=== PATIENT | male | born 1990 | race Caucasian/White ===

== ENCOUNTER 2017-07-29 19:15 | Inpatient (IN) | payer MEDICAID ==
[~2017-07-29] VITALS: Ht 154.9 cm; Wt 61.2 kg
[2017-07-29 19:52] VITALS: BP 131/63
--- NOTE | 2017-07-29 20:46 | NUR ---
Pt ambulated to bed 4.
--- NOTE | 2017-07-29 20:55 | NUR ---
Patient being evaluated by Dr. Malik at bedside.
--- NOTE | 2017-07-29 21:00 | NUR ---
26/M c/o left flank pain x2 days. Pt also c/o N/V/D. No vomiting or diarrhea noted while pt in ED. Pt c/o sharp, non radiating, 7/10 left flank pain. Skin warm and dry, normal in color for ethnicity. Abdomen soft, non tender, active bowel sounds x4 quadrants. Denies any painful urination. AOX4, faroese speaking, clear speech. VSS. Pt assisted into a gown, placed on director of cardiac rehabilitation, pulse oximetry and blood pressure monitoring. Placed in position of comfort. All needs addressed.
[2017-07-29 21:08] LABS: BASOPHILS # (AUTO) 0.4 K/uL (0.00-0.22); EOSINOPHILS # (AUTO) 0.2 K/uL (0-0.4); HEMATOCRIT 44.3 % (36-52); HEMOGLOBIN 14.5 g/dL (12.0-18.0); LYMPHOCYTES # (AUTO) 0.7 K/uL (2.0-11.5); MEAN CORPUSCULAR HEMOGLOBIN 29 pg (27-31); MEAN CORPUSCULAR HGB CONC 33 g/dL (33-37); MEAN CORPUSCULAR VOLUME 89 fL (80-94); MONOCYTES # (AUTO) 1.1 K/uL (0.8-1.0); NEUTROPHILS # (AUTO) 8.4 K/uL (1.8-7.7); PLATELET COUNT (AUTO) 230 K/uL (140-450); RED CELL DISTRIBUTION WIDTH 12.6 % (11.6-13.7); WHITE BLOOD COUNT (AUTO) 10.8 K/uL (4.8-10.8)
--- NOTE | 2017-07-29 21:09 | NUR ---
Pain medication offered to patient. Pt states "I am okay right now."
[2017-07-29 21:18] LABS: ANION GAP 16.6 (8-16); CARBON DIOXIDE 23.8 mmol/L (21-32); CREATININE 1.5 mg/dL (0.7-1.3); POTASSIUM 3.4 mmol/L (3.5-5.1)
[2017-07-29 21:23] LABS: ALBUMIN 4.4 g/dL (3.4-5.0); TOTAL BILIRUBIN 0.8 mg/dL (0.0-1.0)
[2017-07-29 21:43] LABS: BILIRUBIN,URINE NEGATIVE (NEGATIVE); BLOOD, URINE TRACE-I (NEGATIVE); LEUKOCYTE ESTERASE ,URINE NEGATIVE (NEGATIVE); NITRITE, URINE NEGATIVE (NEGATIVE); UGLUCOSE NEGATIVE (NEGATIVE)
[2017-07-29 21:46] LABS: APPEARANCE,URINE CLEAR (CLEAR); COLOR,URINE YELLOW (YELLOW)
--- NOTE | 2017-07-29 21:49 | NUR ---
Patient resting comfortably in bed. VSS. Mother and girlfriend at bedside. No distress noted.
[2017-07-29] MEDS ORDERED: LEVOFLOXACIN 500 MG/D5W PREMIX 100 ML IV ONE (21:50)
[2017-07-29 21:56] LABS: RBC,URINE 3-10 (FEW) /HPF (0-5); WBC,URINE 0-5 (RARE) /HPF (0-5)
[2017-07-29] MEDS ORDERED: MORPHINE SULFATE 2 MG/ML SYR IVP PRN (22:05)
[2017-07-29] MEDS ORDERED: HYDROcodone/APAP 7.5/325 MG 1 TAB PO PRN (22:05)
[2017-07-29] MEDS ORDERED: ACETAMINOPHEN 325 MG TAB PO PRN (22:05)
[2017-07-29] MEDS ORDERED: DOCUSATE SODIUM 100 MG GELCAP PO PRN (22:05)
[2017-07-29] MEDS ORDERED: ONDANSETRON 4 MG/2 ML VIAL IM/IVP PRN (22:05)
[2017-07-29] MEDS ORDERED: KCL 20 MEQ/WATER INJ PREMIX 100 ML IV ONE (22:15)
--- NOTE | 2017-07-29 22:31 | NUR ---
Patient will be admitted to care of Dr. Pan. Admited to TELE. Will go to room 111-B. Belongings list completed. Report to Tiffanie RENE.
--- NOTE | 2017-07-29 22:37 | NUR ---
Pt transferred to Tele 111-B via [facility] accompanied by EMT Areli and Lety RENE.
[2017-07-29 22:45] VITALS: BP 105/63
[2017-07-29 22:47] LABS: BARBITURATE, URINE NEG. ng/ml (NEG <=200); BENZODIAZEPINE, URINE NEG. ng/mL (NEG <=200); CANNABINOID, URINE NEG. ng/mL (NEG <=50); COCAINE, URINE NEG. ng/mL (NEG <=300); OPIATE, URINE NEG. ng/mL (NEG <=2000); PHENCYCLIDINE SCREEN,URINE NEG. ng/mL (NEG <=25)
--- NOTE | 2017-07-29 22:55 | NUR ---
ADMITTED PATIENT TO THE TELE UNIT, PATIENT AWAKE ALERT ORIENTED X4, NO S/S OF ACUTE DISTRESS NOTED, RESPIRATION EVEN AND UNLABORED, IV INTACT AND PATENT, INFUSING LEVOFLOXACIN 500MG IVPB AT 100ML/HR. TELE MONITOR PLACED ON PATIENT, PLAN OF CARE DISCUSSED, PATIENT VERBALIZED UNDERSTANDING, ORIENTED PATIENT TO THE ROOM, CALL LIGHT WITHIN REACH, SAFETY MEASURE ENSURED, WILL CONTINUE TO MONITOR.
[2017-07-29 22:56] LABS: MAGNESIUM 1.8 mg/dL (1.8-2.4); PHOSPHORUS 3.5 mg/dL (2.5-4.9); THYROID STIMULATING HORMONE 1.01 uIU/mL (0.34-3.74)
[2017-07-29] MEDS: NACL 0.9% 1,000 ML IV SCH (23:11)
--- NOTE | 2017-07-30 00:11 | NUR ---
SCD APPLIED ON BOTH LOWER EXTREMITIES. PATIENT RESTING IN BED, NO S/S OF ACUTE DISTRESS NOTED, WILL CONTINUE TO MONITOR.
--- NOTE | 2017-07-30 01:55 | NUR ---
PATIENT SLEEPING IN THE BED, NO S/S OF ACUTE DISTRESS NOTED, RESPIRATION EVEN AND UNLABORED, CALL LIGHT WITHIN REACH, SAFETY MEASURE ENSURED, WILL CONTINUE TO MONITOR.
[2017-07-30 04:00] VITALS: BP 109/65
--- NOTE | 2017-07-30 04:09 | NUR ---
PATIENT SLEEPING IN THE BED, NO S/S OF ACUTE DISTRESS NOTED, RESPIRATION EVEN AND UNLABORED, CALL LIGHT WITHIN REACH, SAFETY MEASURE ENSURED, WILL CONTINUE TO MONITOR.
[2017-07-30 05:45] LABS: BASOPHILS # (AUTO) 0.1 K/uL (0.00-0.22); BASOPHILS % (AUTO) 1.5 % (0.0-2.0); EOSINOPHILS # (AUTO) 0.2 K/uL (0-0.4); EOSINOPHILS % (AUTO) 2.3 % (0.0-4.0); HEMATOCRIT 39.9 % (36-52); HEMOGLOBIN 13.5 g/dL (12.0-18.0); LYMPHOCYTES # (AUTO) 1.7 K/uL (2.0-11.5); LYMPHOCYTES % (AUTO) 20.7 % (20.5-51.1); MEAN CORPUSCULAR HEMOGLOBIN 30 pg (27-31); MEAN CORPUSCULAR HGB CONC 34 g/dL (33-37); MEAN CORPUSCULAR VOLUME 89 fL (80-94); MONOCYTES # (AUTO) 0.8 K/uL (0.8-1.0); MONOCYTES % (AUTO) 9.5 % (1.7-9.3); NEUTROPHILS # (AUTO) 5.6 K/uL (1.8-7.7); PLATELET COUNT (AUTO) 200 K/uL (140-450); RED BLOOD CELL COUNT(AUTO) 4.47 MIL/uL (4.20-6.10); RED CELL DISTRIBUTION WIDTH 12.5 % (11.6-13.7); WHITE BLOOD COUNT (AUTO) 8.4 K/uL (4.8-10.8)
--- NOTE | 2017-07-30 05:46 | NUR ---
STRAIN 200ML URINE, NO STONE WAS FOUND.
[2017-07-30 06:07] LABS: ANION GAP 12.3 (8-16); CARBON DIOXIDE 25.6 mmol/L (21-32); CREATININE 1.3 mg/dL (0.7-1.3); POTASSIUM 3.9 mmol/L (3.5-5.1)
--- NOTE | 2017-07-30 07:12 | NUR ---
ENDORSED PLAN OF CARE TO DAY RN ANDREINA, PATIENT IS IN STABLE CONDITION. NO S/S OF ACUTE DISTRESS NOTED, RESPIRATION EVEN AND UNLABORED.
--- NOTE | 2017-07-30 07:15 | NUR ---
RECEIVED PATIENT REPORT AT BEDSIDE FROM NIGHT NURSE. PATIENT IS AAOX4 AND SHOWS NO S/S OF ACUTE DISTRESS ON ROOM AIR. PATIENT HAS NOTED IVF'S INFUSING WELL ON THE L FA. SKIN IS INTACT. PATIENT DENIES PAIN. PATIENT WAS EDUCATED ON HIS POC FOR TODAY AND VERBALIZED UNDERSTANDING. PATIENT IS AWARE OF HOW TO CALL FOR ASSISTANCE USING THE CALL LIGHT. THE BED IS LOWERED WITH CALL LIGHT WITHIN REACH. WILL CONTINUE TO MONITOR.
[2017-07-30] MEDS: TAMSULOSIN 0.4 MG CAP PO SCH (08:34)
--- NOTE | 2017-07-30 08:34 | NUR ---
ADMINISTERED SCHEDULED MEDICATIONS. PATIENT TOLERATED ACTIVITY WELL. PATIENT SHOWS NO S/S OF ACUTE DISTRESS.
[2017-07-30] MEDS: NACL 0.9% 1,000 ML IV SCH ×3 (08:42→23:02)
[2017-07-30 09:16] VITALS: BP 101/61
--- NOTE | 2017-07-30 10:25 | NUR ---
PATIENT SHOWS NO S/S OF ACUTE DISTRESS ON ROOM AIR. PATIENT DENIES PAIN. WILL CONTINUE TO MONITOR.
--- NOTE | 2017-07-30 11:22 | NUR ---
PATIENT HAS BEEN SCREENED AND CATEGORIZED MODERATE NUTRITION RISK. PATIENT WILL BE SEEN WITHIN 3-5 DAYS OF ADMISSION. 08/01/17-08/03/[address]
--- NOTE | 2017-07-30 12:55 | NUR ---
PATIENT IS BEING SEEN BY DR AGUILAR UROLOGIST. PATIENT OKAYED TO BE DISCHARGED TODAY BY CONSULT. PATIENT AWARE OF CONTINUITY OF CARE. WILL CONTINUE TO MONITOR.
--- NOTE | 2017-07-30 13:30 | NUR ---
PATIENT IS SLEEPING AND SHOWS NO S/S OF ACUTE DISTRESS ON ROOM AIR.
--- NOTE | 2017-07-30 14:31 | NUR ---
PATIENT HAS FAMILY AT BEDSIDE. PATIENT IS AAOX4 AND SHOWS NO S/S OF ACUTE DISTRESS ON ROOM AIR. THE BED IS LOWERED WITH CALL LIGHT WITHIN REACH.
[2017-07-30 15:39] VITALS: BP 97/66
--- NOTE | 2017-07-30 16:30 | NUR ---
PATIENT HAS FAMILY AT BEDSIDE AND SHOWS NO S/S OF ACUTE DISTRESS AND DENIES PAIN. WILL CONTINUE TO MONITOR.
--- NOTE | 2017-07-30 18:02 | NUR ---
PATIENT WAS SEEN BY DR CHAPPELL PATIENT INQUIRING WHEN HE WILL BE DISCHARGED.
--- NOTE | 2017-07-30 18:14 | NUR ---
PATIENT IS AAOX4 AND DENIES PAIN. PATIENT IS AWARE OF POC AND WILL STAY ANOTHER NIGHT AT [facility]. PATIENT SHOWS NO S/S OF ACUTE DISTRESS ON ROOM AIR. PATIENT IS IN STABLE CONDITION. WILL ENDORSE TO NIGHT NURSE.
--- NOTE | 2017-07-30 19:52 | NUR ---
RECEIVED HANDOFF REPORT FROM AM RN. PATIENT A&OX4. NO SIGNS AND SYMPTOMS OF DISTRESS NOTED. PATIENT DENIES PAIN. IV PATENT AND INTACT. CALL LIGHT WITHIN REACH. WILL CONTINUE TO MONITOR.
--- NOTE | 2017-07-30 22:49 | NUR ---
PATIENT SLEEPING IN BED. NO SIGNS OR SYMPTOMS OF ACUTE DISTRESS. WILL CONTINUE TO MONITOR
[2017-07-31] VITALS: BP 95/67
--- NOTE | 2017-07-31 | NUR ---
PATIENT REPORTS BURNING PAIN 6/10 FLANK PAIN. PATIENT DENIES MEDICATION. NO SIGNS OR SYMPTOMS OF ACUTE DISTRESS. CALL LIGHT WITHIN REACH. WILL CONTINUE TO MONITOR.
--- NOTE | 2017-07-31 00:40 | NUR ---
PATIENT SLEEPING. NO SIGNS OR SYMPTOMS OF ACUTE DISTRESS. WILL CONTINUE TO MONITOR
--- NOTE | 2017-07-31 03:00 | NUR ---
PATIENT SLEEPING. NO SIGNS AND SYMPTOMS OF ACUTE DISTRESS NOTED. CALL LIGHT WITHIN REACH. WILL CONTINUE TO MONITOR.
--- NOTE | 2017-07-31 05:15 | NUR ---
PATIENT SLEEPING. NO SIGNS AND SYMPTOMS OF ACUTE DISTRESS. CALL LIGHT WITHIN REACH. WILL CONTINUE TO MONITOR.
[2017-07-31 05:55] LABS: BASOPHILS # (AUTO) 0.2 K/uL (0.00-0.22); BASOPHILS % (AUTO) 3.7 % (0.0-2.0); EOSINOPHILS # (AUTO) 0.2 K/uL (0-0.4); EOSINOPHILS % (AUTO) 3.7 % (0.0-4.0); HEMATOCRIT 38.7 % (36-52); HEMOGLOBIN 13.3 g/dL (12.0-18.0); LYMPHOCYTES # (AUTO) 1.9 K/uL (2.0-11.5); LYMPHOCYTES % (AUTO) 32.1 % (20.5-51.1); MEAN CORPUSCULAR HEMOGLOBIN 31 pg (27-31); MEAN CORPUSCULAR HGB CONC 34 g/dL (33-37); MEAN CORPUSCULAR VOLUME 89 fL (80-94); MONOCYTES # (AUTO) 0.5 K/uL (0.8-1.0); MONOCYTES % (AUTO) 8.5 % (1.7-9.3); NEUTROPHILS # (AUTO) 3.3 K/uL (1.8-7.7); PLATELET COUNT (AUTO) 187 K/uL (140-450); RED BLOOD CELL COUNT(AUTO) 4.35 MIL/uL (4.20-6.10); RED CELL DISTRIBUTION WIDTH 12.3 % (11.6-13.7); WHITE BLOOD COUNT (AUTO) 6.1 K/uL (4.8-10.8)
[2017-07-31 06:09] LABS: ANION GAP 12.1 (8-16); CARBON DIOXIDE 25.9 mmol/L (21-32); CREATININE 1.1 mg/dL (0.7-1.3)
[2017-07-31 06:11] LABS: PHOSPHORUS 3.3 mg/dL (2.5-4.9)
--- NOTE | 2017-07-31 07:15 | NUR ---
ENDORSED PLAN OF CARE TO AM NURSE. PATIENT REMAINS STABLE.
--- NOTE | 2017-07-31 07:23 | NUR ---
RECEIVED REPORT FROM OFFSET PRINTER NURSE, PT IS RESTING IN BED WATCHING TV, PT IS A/OX4, AMBULATORY, IV IS ON THE LT FOREARM, PATENT, INTACT, FLUSHING WELL, SKIN IS INTACT, NO S/S OF RESPIRATORY DISTRESS OR DISCOMFORT NOTED, SAFETY/FALL PRECAUTIONS ARE IN PLACE, DISCUSSED PLAN OF CARE WITH PT, PT VERBALIZED UNDERSTANDING, CALL LIGHT IS WITHIN REACH, WILL CONTINUE TO MONITOR.
[2017-07-31 08:00] VITALS: BP 108/64
[2017-07-31] MEDS: TAMSULOSIN 0.4 MG CAP PO SCH (08:36)
--- NOTE | 2017-07-31 08:36 | NUR ---
PT RESTING IN BED, DUE MEDICATIONS GIVEN, PT TOLERATED WELL, CALL LIGHT IS WITHIN REACH, WILL CONTINUE TO MONITOR.
[2017-07-31] MEDS ORDERED: TAMS0.4C96 PO (08:47)
[2017-07-31] MEDS ORDERED: ACET-9529 PO ×2 (08:47→09:49)
--- NOTE | 2017-07-31 10:15 | NUR ---
DISCHARGE INSTRUCTIONS GIVEN, ID WRIST BAND REMOVED, IV REMOVED, CATHETER TIP INTACT, PT STABLE UPON DISCHARGE ACCOMPANIED BY FAMILY MEMBER
== END 2017-07-31 10:15 | disposition home or self-care (01) | DRG 465 ==
LOC: MED 19:15 → MTU 22:03
PROVIDERS: ADMIT Family Medicine; ATTEND Family Medicine
DX: N13.2 Hydronephrosis with renal and ureteral calculous obstruction (principal); N17.0 Acute kidney failure with tubular necrosis; N10 Acute pyelonephritis; E87.6 Hypokalemia
CPT/HCPCS: 36415; 71010; 80048; 80053; 80305; 81001; 83036; 83605; 83735; 83880; 84100; 84436; 84443; 84479; 84484; 85025; 85610; 85730; 87040; 87081; 87086; 93005; 99285; J1956; J3480; J7030